=== PATIENT | male | born 1975 | race Asian ===

== ENCOUNTER → 2020-10-28 | Outpatient (CLI) | payer OTHER | LOC: LAB 16:17 | PROVIDERS: ATTEND Internal Medicine | DX: Z00.00 Encounter for general adult medical examination without abnormal findings (principal); I25.10 Atherosclerotic heart disease of native coronary artery without angina pectoris; L40.9 Psoriasis, unspecified ==

== ENCOUNTER → 2020-10-28 | Outpatient (CLI) | payer OTHER ==
[2020-10-28 16:48] LABS: BASOPHILS % 0.2 % (0.0-1.0); EOSINOPHILS # (AUTO) 0.1 (0.0-0.4); EOSINOPHILS % 2.3 % (0.0-6.0); HEMOGLOBIN 13.9 g/dL (14.0-18.0); LYMPHOCYTES # (AUTO) 1.6 (1.0-3.2); LYMPHOCYTES % 32.2 % (18.0-39.1); MEAN CORPUSCULAR HEMOGLOBIN 29.2 pg (28-32); MEAN CORPUSCULAR HGB CONC 33.1 g/dL (31-35); MEAN CORPUSCULAR VOLUME 88.2 fL (81-99); MONOCYTES # (AUTO) 0.6 (0.2-0.8); MONOCYTES % 11.5 % (4.4-11.3); NEUTROPHILS # (AUTO) 2.6 (2.1-6.9); NEUTROPHILS % 53.6 % (38.7-80.0); PLATELET COUNT 218 x10e3/uL (140-360); RED BLOOD COUNT 4.76 x10e6/uL (4.3-5.7); RED CELL DISTRIBUTION WIDTH 14.2 % (11.7-14.4)
[2020-10-28 16:55] LABS: CLARITY,URINE CLEAR (CLEAR); COLOR,URINE AMBER (YELLOW); KETONES,URINE NEGATIVE (NEGATIVE); LEUKOCYTE ESTERASE ,URINE NEGATIVE (NEGATIVE); NITRITE,URINE NEGATIVE (NEGATIVE); PROTEIN,URINE DIPSTICK 2+ (NEGATIVE); URINE UROBILINOGEN 0.2 mg/dL (0.2 - 1)
[2020-10-28 17:08] LABS: BACTERIA,URINE FEW /HPF; MUCUS,URINE FEW (RARE); WBC,URINE (MAN) 0-5 /HPF (0-5)
[2020-10-28 17:12] LABS: ALBUMIN 3.4 g/dL (3.5-5.0); ALBUMIN/GLOBULIN RATIO 0.6 (0.8-2.0); CALCIUM 9.1 mg/dL (8.4-10.2); CREATININE, SERUM 1.05 mg/dL (0.72-1.25)
[2020-10-28 17:13] LABS: TOTAL PROTEIN, URINE 96.4 mg/dL (1-14)
[2020-10-28 17:32] LABS: FREE T4 (FREE THYROXINE) 1.02 ng/dL (0.8-1.8); THYROID STIMULATING HORMONE 2.931 uIU/mL (0.350-4.940)
[2020-10-28 17:35] LABS: ERYTHROCYTE SEDIMENTATION RATE 57 mm/hr (0-13)
== END ==
LOC: LAB 16:25
PROVIDERS: ATTEND Internal Medicine Rheumatology
DX: G90.09 Other idiopathic peripheral autonomic neuropathy (principal); L40.59 Other psoriatic arthropathy
CPT/HCPCS: 36415; 80053; 80061; 81001; 84156; 84439; 84443; 85025; 85651; 86021; 86039; 86140; 86431; 86803; 87340

== ENCOUNTER → 2020-10-31 | Outpatient (CLI) | payer OTHER | LOC: DX 08:26 | PROVIDERS: ATTEND Internal Medicine | DX: R13.19 Other dysphagia (principal); Z20.822 Contact with and (suspected) exposure to COVID-19 | CPT/HCPCS: 74246; U0002 ==